=== PATIENT | male | born 1960 ===

== ENCOUNTER → 2019-02-13 | Outpatient (CLI) | payer OTHER ==
--- NOTE | 2019-02-13 14:44 | Diagnostic Imaging Report ---
HISTORY: Back pain. COMPARISON: No relevant prior examinations available. TECHNIQUE: Multi-planar and multi-sequence MR imaging of the lumbar spine was performed without administration of intravenous contrast material. FINDINGS: ALIGNMENT: There is normal lumbar lordosis. There is no spondylolisthesis. DISKS and BONES: The intervertebral disks are normal in signal and height. Mild degenerative marrow endplate signal changes at L3-4 posteriorly. Otherwise, the bone marrow signal is within normal limits. The vertebral body heights are preserved. SPINAL CORD: The conus medullaris appears normal and terminates at the level of L1-2. The visualized portions of the spinal cord and cauda equina are unremarkable, with no signal abnormality. PARAVERTEBRAL SOFT TISSUES: Within normal limits. SIGNIFICANT FINDINGS BY LEVEL: T12/L1: No significant spinal canal or neuroforaminal narrowing. L1/L2: Mild posterior broad-based disc bulge. Mild ligamentum flavum infolding and facet arthropathy. Mild spinal canal narrowing and no significant neural foraminal narrowing. L2/L3: Mild ligamentum flavum infolding and facet arthropathy. No significant spinal canal or neuroforaminal narrowing. L3/L4: Mild posterior disc protrusion resulting in effacement of the anterior CSF space. Mild facet arthropathy and ligamentum flavum infolding. Mild spinal canal narrowing and no significant neural foraminal narrowing. L4/L5: Mild ligamentum flavum infolding and facet arthropathy. No significant spinal canal or neuroforaminal narrowing. L5/S1: Mild ligamentum flavum infolding and facet arthropathy. No significant spinal canal or neuroforaminal narrowing. IMPRESSION: 1. No fracture or marrow replacing lesion. 2. Mild multilevel degenerative changes most notably with posterior disc bulging at L1-2 and L3-4 which result in mild spinal canal narrowing. No neural foraminal narrowing. Signed by: Venus Bunn MD on 02/13/2019 2:41 PM
== END ==
LOC: MRI 10:16
PROVIDERS: ATTEND Family Medicine
DX: S39.012D Strain of muscle, fascia and tendon of lower back, subsequent encounter (principal)
CPT/HCPCS: 72148